=== PATIENT | female | born 1975 | race African-American/Black ===

== ENCOUNTER 2021-12-07 08:41 | Observation (INO) ==
[2021-12-07 09:14] LABS: Basophils % 0.4 % (0.0-0.8); Eosinophils # 0.1 10*3/uL (0.0-0.87); Eosinophils % 1.7 % (0.00-10.9); Hematocrit 39.6 VOL% (35.7-47.0); Hemoglobin 12.2 GM/DL (12.0-16.0); Immature Granulocytes % 0.3 %; Immature Granulocytes Absolute 0.02 #; Lymphocytes % 38.9 % (21.3-54.2); Mean Corpuscular HGB Conc 30.8 GM/DL (32-36); Mean Corpuscular Volume 82.8 FL (87-102); Mean Platelet Volume 10.5 FL (9.6-12.0); Monocytes # 0.4 10*3/uL (0.11-0.8); Monocytes % 5.2 % (1.7-12.7); Neutrophils % 53.5 % (38.7-73.9); Platelet Count 287 T/CUMM (130-400); Red Blood Count 4.78 MC/CUMM (3.8-5.5); Red Cell Distribution Width 15.2 % (9.3-17.3); White Blood Count 7.7 T/CUMM (4-12)
[2021-12-07 09:25] LABS: Calcium 9.5 MG/DL (8.5-10.1); Osmolality,Calculated 279.4 MOS/KG (273-304); Potassium 3.3 MMOL/L (3.5-5.1)
[2021-12-07] MEDS ORDERED: fentaNYL 100 MCG/2 ML VIAL ONE (09:37)
[2021-12-07] MEDS ORDERED: MIDAZOLAM 2 MG/2 ML VIAL ONE (09:37)
[2021-12-07] MEDS ORDERED: ONDANSETRON 4 MG/2 ML VIAL ONE (09:38)
[2021-12-07] MEDS ORDERED: propofoL 200 MG/20 ML VIAL IV ONE (09:39)
[2021-12-07] MEDS ORDERED: LIDOCAINE 2% 5 ML VIAL ONE ×2 (10:30)
[2021-12-07] MEDS ORDERED: SEVOFLURANE 1 UNIT/15 MINUTE INH ONE (10:30)
[2021-12-07] MEDS ORDERED: ESMOLOL 100 MG/10 ML VIAL IV ONE (10:30)
[2021-12-07] MEDS ORDERED: ONDANSETRON 4 MG/2 ML VIAL IV PRN (10:41)
[2021-12-07] MEDS ORDERED: ACETAMINOPHEN 325 MG TABLET PO PRN (10:41)
[2021-12-07 11:15] LABS: Basophils % 0.6 % (0.0-0.8); Eosinophils # 0.1 10*3/uL (0.0-0.87); Eosinophils % 1.1 % (0.00-10.9); Hematocrit 38.1 VOL% (35.7-47.0); Hemoglobin 11.7 GM/DL (12.0-16.0); Immature Granulocytes % 0.3 %; Immature Granulocytes Absolute 0.02 #; Lymphocytes # 3.1 10*3/uL (1.4-4.0); Lymphocytes % 44.7 % (21.3-54.2); Mean Corpuscular HGB Conc 30.7 GM/DL (32-36); Mean Corpuscular Volume 83.2 FL (87-102); Mean Platelet Volume 10.2 FL (9.6-12.0); Monocytes # 0.4 10*3/uL (0.11-0.8); Monocytes % 5.3 % (1.7-12.7); Platelet Count 275 T/CUMM (130-400); Red Blood Count 4.58 MC/CUMM (3.8-5.5); Red Cell Distribution Width 15.3 % (9.3-17.3)
[2021-12-07 11:40] LABS: Calcium 9.3 MG/DL (8.5-10.1); Osmolality,Calculated 280.3 MOS/KG (273-304); Potassium 3.8 MMOL/L (3.5-5.1)
[2021-12-07] MEDS ORDERED: BUPIVACAINE MPF 0.25% 10 ML VIAL MISC INJ ONE (16:00)
[2021-12-07] MEDS ORDERED: LIDOCAINE 1%/EPI INJ 20 ML VIAL MISC INJ ONE (16:00)
[2021-12-07] MEDS ORDERED: HEPARIN 5,000 UNIT/1 ML VIAL IV ONE (16:00)
[2021-12-07 17:00] LABS: Thyroid Stimulating Hormone 0.874 uIU/ml (0.358-3.74)
[2021-12-07] MEDS: METOPROLOL TARTRATE 25 MG TABLET PO SCH (21:44)
[2021-12-08] MEDS ORDERED: ENOXAPARIN 40 MG/0.4 ML SYRINGE SUBCUT SCH (09:00)
[2021-12-08] MEDS ORDERED: PANTOPRAZOLE 40 MG TABLET PO SCH (09:00)
[2021-12-08] MEDS ORDERED: LOSARTAN/HCTZ 50-12.5 MG TABLET PO SCH ×2 (09:00)
[2021-12-08] MEDS: METOPROLOL TARTRATE 25 MG TABLET PO SCH (09:02)
[2021-12-08 11:19] VITALS: BP 112/72
[2021-12-08] MEDS ORDERED: ATORVASTATIN 20 MG TABLET PO SCH (21:00)
== END 2021-12-08 12:28 | disposition home or self-care (01) ==
LOC: N.OR 08:41 → N.TELEN 08:41 → N.SDSINP 08:42 → N.TELEN 14:26
PROVIDERS: ADMIT Student in an Organized Health Care Education/Training Program; ATTEND Student in an Organized Health Care Education/Training Program